=== PATIENT | male | born 1955 | race Caucasian/White ===

== ENCOUNTER → 2020-07-14 | Outpatient (CLI) | payer MEDICARE, OTHER ==
[2020-07-14 10:48] LABS: POTASSIUM 4.2 mmol/L (3.5-5.1)
[2020-07-14 10:49] LABS: CALCIUM 8.8 mg/dL (8.3-10.5)
[2020-07-14 10:51] LABS: TOTAL PROTEIN 7.5 g/dL (6.2-8.1)
[2020-07-14 10:53] LABS: TOTAL BILIRUBIN 0.5 mg/dL (0.2-1.2)
== END ==
LOC: LAB 10:13
PROVIDERS: Family Medicine
DX: Z12.5 Encounter for screening for malignant neoplasm of prostate (principal); Z12.11 Encounter for screening for malignant neoplasm of colon; I10 Essential (primary) hypertension; E78.00 Pure hypercholesterolemia, unspecified

== ENCOUNTER → 2020-09-06 | Outpatient (CLI) | payer MEDICARE, OTHER | LOC: LAB 09:26 | DX: Z01.812 Encounter for preprocedural laboratory examination (principal); Z20.828 Contact with and (suspected) exposure to other viral communicable diseases ==

== ENCOUNTER → 2020-09-11 | Day surgery (SDC) | payer MEDICARE, OTHER | LOC: MSO 07:11 | DX: K57.30 Diverticulosis of large intestine without perforation or abscess without bleeding (principal); I10 Essential (primary) hypertension; G47.33 Obstructive sleep apnea (adult) (pediatric); E66.01 Morbid (severe) obesity due to excess calories; E78.00 Pure hypercholesterolemia, unspecified; K21.9 Gastro-esophageal reflux disease without esophagitis; Z79.899 Other long term (current) drug therapy; Z79.82 Long term (current) use of aspirin; Z79.51 Long term (current) use of inhaled steroids | CPT/HCPCS: 00812; J2704; J3010; J7120 ==

== ENCOUNTER → 2020-11-24 | Outpatient (CLI) | payer MEDICARE, OTHER ==
[2020-11-24 07:49] LABS: ALBUMIN 4.1 g/dL (3.4-4.8)
[2020-11-24 07:51] LABS: TOTAL PROTEIN 7.7 g/dL (6.2-8.1)
[2020-11-24 07:53] LABS: TOTAL BILIRUBIN 0.6 mg/dL (0.2-1.2)
[2020-11-24 07:57] LABS: DIRECT BILIRUBIN 0.2 mg/dL (0.0-0.5)
== END ==
LOC: LAB 07:22
PROVIDERS: Family Medicine
DX: E78.00 Pure hypercholesterolemia, unspecified (principal)

== ENCOUNTER → 2022-02-01 | Outpatient (CLI) | payer MEDICARE, OTHER ==
[2022-02-01 08:47] LABS: POTASSIUM 4.3 mmol/L (3.5-5.1)
[2022-02-01 08:48] LABS: ALBUMIN 3.9 g/dL (3.4-4.8)
[2022-02-01 08:50] LABS: TOTAL PROTEIN 7.6 g/dL (6.2-8.1)
[2022-02-01 08:52] LABS: TOTAL BILIRUBIN 0.8 mg/dL (0.2-1.2)
== END ==
LOC: LAB 08:23
PROVIDERS: Family Medicine
DX: Z12.5 Encounter for screening for malignant neoplasm of prostate (principal); Z13.6 Encounter for screening for cardiovascular disorders; E78.00 Pure hypercholesterolemia, unspecified; I10 Essential (primary) hypertension

== ENCOUNTER → 2022-02-08 | Outpatient (CLI) | payer MEDICARE, OTHER | LOC: LAB 09:12 | DX: Z00.00 Encounter for general adult medical examination without abnormal findings (principal); Z13.6 Encounter for screening for cardiovascular disorders; I10 Essential (primary) hypertension; E78.00 Pure hypercholesterolemia, unspecified; H93.13 Tinnitus, bilateral; R60.0 Localized edema; R73.01 Impaired fasting glucose ==

== ENCOUNTER → 2022-03-22 | Outpatient (CLI) | payer MEDICARE, OTHER | LOC: CARDREHAB 07:47 | DX: Z00.00 Encounter for general adult medical examination without abnormal findings (principal); Z13.6 Encounter for screening for cardiovascular disorders | CPT/HCPCS: A9500 ==

== ENCOUNTER → 2022-05-01 | Outpatient (CLI) | payer MEDICARE, OTHER | LOC: LAB 08:36 | DX: Z13.6 Encounter for screening for cardiovascular disorders (principal); I10 Essential (primary) hypertension; E11.9 Type 2 diabetes mellitus without complications; E78.00 Pure hypercholesterolemia, unspecified ==

== ENCOUNTER → 2024-03-24 | Outpatient (CLI) | payer MEDICARE, OTHER ==
[2024-03-24 09:14] LABS: CALCIUM 10.1 mg/dL (8.3-10.5)
== END ==
LOC: LAB 08:53
PROVIDERS: Family Medicine
DX: M19.072 Primary osteoarthritis, left ankle and foot (principal); M19.071 Primary osteoarthritis, right ankle and foot; E11.9 Type 2 diabetes mellitus without complications; E78.2 Mixed hyperlipidemia